=== PATIENT | female | born 2000 | race Caucasian/White ===

== ENCOUNTER 2023-03-02 12:31 | Emergency (ER) | payer MEDICAID ==
[~2023-03-02] VITALS: Ht 165.1 cm; Wt 74.1 kg
[2023-03-02] MEDS ORDERED: ondansetron 4mg rapidly disintigrating tab PO STA (12:37)
[2023-03-02] MEDS ORDERED: mag hydrox/Alum hydrox/simeth 30ml oral suspension PO ONE (12:40)
[2023-03-02] MEDS ORDERED: sucralfate 1 gm tablet PO ONE (12:40)
[2023-03-02] MEDS ORDERED: LIDOcaine Viscous 15ml cup MM ONE ×2 (12:40→12:50)
[2023-03-02] MEDS ORDERED: PANT-47 PO (16:35)
[2023-03-02 16:56] VITALS: BP 113/79; PULSE 82; RESP 18; TEMP 98.3; O2SAT 99
== END 2023-03-02 16:57 | disposition home or self-care (01) ==
LOC: ER 12:32
DX: K29.00 Acute gastritis without bleeding (principal); J45.909 Unspecified asthma, uncomplicated; Z79.899 Other long term (current) drug therapy
CPT/HCPCS: 93005; 99284

== ENCOUNTER 2024-07-03 00:46 | Emergency (ER) | payer MEDICAID ==
[~2024-07-03] VITALS: Ht 165.1 cm; Wt 79.1 kg
[~2024-07-03 00:46] MED LIST: PANT-47 PO
[2024-07-03] MEDS ORDERED: TEST200V33 SQ (01:02)
[2024-07-03 02:12] LABS: BASOPHILS # (AUTO) 0.1 X10'3 (0-0.2); BASOPHILS % (AUTO) 0.5 % (0-1); EOSINOPHILS # (AUTO) 0.1 X10'3 (0-0.9); EOSINOPHILS % (AUTO) 1.2 % (0-6); HEMATOCRIT 39.1 % (35.0-45.0); HEMOGLOBIN 13.1 g/dl (12.0-16.0); LYMPHOCYTES # (AUTO) 4.3 X10'3 (1.1-4.8); LYMPHOCYTES % (AUTO) 39.7 % (21-51); MEAN CORPUSCULAR HEMOGLOBIN 29.2 PG (27.0-31.0); MEAN CORPUSCULAR HGB CONC 33.4 g/dL (33.0-36.5); MEAN CORPUSCULAR VOLUME 87.4 FL (78-98); MEAN PLATELET VOLUME 9.6 FL (7.4-10.4); MONOCYTES # (AUTO) 0.9 X10'3 (0-0.9); MONOCYTES % (AUTO) 8.7 % (2-12); NEUTROPHILS # (AUTO) 5.4 X10'3 (1.8-7.7); NEUTROPHILS % (AUTO) 49.9 % (42-75); PLATELET COUNT 289 X10'3 (140-440); RED BLOOD COUNT 4.47 X10'6 (4.20-5.60); RED CELL DISTRIBUTION WIDTH 13.3 % (11.5-14.5); WHITE BLOOD COUNT 10.8 X10'3 (4.5-11.0)
[2024-07-03 02:16] LABS: ALANINE AMINOTRANSFERASE 15 U/L (12-78); ALBUMIN/GLOBULIN RATIO 1.2 (1.1-1.5); ALKALINE PHOSPHATASE 80 IU/L (46-116); ANION GAP 5 (8-16); ASPARTATE AMINO TRANSFERASE 12 U/L (10-37); BILIRUBIN,TOTAL 0.2 MG/DL (0.1-1.0); BLOOD UREA NITROGEN 11 MG/DL (7-18); CALCIUM 8.9 MG/DL (8.5-10.1); CHLORIDE 106 MMOL/L (99-107); CREATININE 0.92 MG/DL (0.40-0.90); GLUCOSE 101 MG/DL (70-104); LIPASE 27 U/L (16-77); POTASSIUM 4.2 MMOL/L (3.5-5.1); SODIUM 139 MMOL/L (135-145); TOTAL CARBON DIOXIDE 28.4 MMOL/L (24-32); TOTAL PROTEIN 7.3 G/DL (6.4-8.2); eCRCL 86 ML/MIN; eGFR 76 ML/MIN
[2024-07-03 05:31] VITALS: TEMP 98
--- NOTE | 2024-07-03 06:20 | Physician Documentation ---
History of Present Illness Chief Complaint: Abdominal Pain Stated Complaint: ABDOMINAL PAIN Time Seen by MD: 06:06 Primary Medical Doctor: NONE Mode of Arrival: POV HPI 23-year-old female presenting with right lower quadrant abdominal pain that started three days ago. Patient states the pain has been constant but fluctuates in intensity. At its worst it was a 10/10 but is currently a six. She states that it radiates outwards towards her belly button and also up into the upper part of her stomach and towards her back. Pain does not seem to improve or worsen with any particular activity. She also endorses nausea but no vomiting. She endorses constipation but no diarrhea. Denies any fever, chills, cough, shortness of breath or any other associated symptoms. Medication Reconciliation Allergies: Coded Allergies: latex (Unverified Allergy, Unknown, delayed contact dermatitis, 07/03/24) Scheduled Pantoprazole Sodium (PROTONIX tablet), 1 TAB PO DAILY Testosterone Cypionate (TESTOSTERONE CYPIONATE 200mg/ml 10ml vial), 0.25 ML SQ Q7D, (Reported) Past Medical History Past Medical History: Asthma Past Surgical History: other Alcohol Use: Rarely Drug Use: none Lives In: Home Review of Systems All Other Systems at this time: Reviewed and Negative Physical Exam Vital Signs: Temperature: 98.0, Source: Oral, Heart Rate: 77, Respiratory Rate: 12, BP: 117/70, Pulse Oximetry: 99, Weight: 79.100 Oxygen Flow Rate: 0 Physical Exam I have reviewed the triage vitals. CONST: Well developed and well nourished. In no acute distress HENT: Head Atraumatic EYES: Pupils are equal, round and reactive to light. Normal conjunctiva NECK: Normal range of motion. Supple. CARDIO: Normal rate and regular rhythm. No murmurs, rubs, or gallops. S1, S2. PULM/CHEST: No respiratory distress. Lungs clear to auscultation. No wheeze ABD: Soft. Nondistended. Bowel sounds normal. No guarding. Tenderness to palpation over the right lower quadrant. : Exam deferred MSK: No edema. No deformity. NEURO: Alert and oriented to person, place and time. Moving all extremities SKIN: Warm and dry. PSYCH: Normal mood and affect. Good eye contact. Progress Results/Orders Results/Orders Orders - MONIKA LECHUGA MD Normal Saline 1,000ml Iv Bolus (07/03/24 06:15) Ct Abdomen Pelvis (07/03/24 06:14) Procalcitonin (07/03/24 06:14) Culture Blood (07/03/24 06:14) Lacticsepsis (07/03/24 06:14) Vital Signs 07/03/24 07/03/24 07/03/24 07/03/24 00:53 03:08 05:31 05:31 Temp 98.3 98.0 98.0 Pulse 95 75 77 Resp 16 14 12 12 B/P (MAP) 115/77 114/57 (76) 117/70 (86) Pulse Ox 97 98 99 O2 Flow Rate 0 0 0 Laboratory Tests Test 07/03/24 01:54 White Blood Count 10.8 Red Blood Count 4.47 Hemoglobin 13.1 Hematocrit 39.1 Mean Corpuscular Volume 87.4 Mean Corpuscular Hemoglobin 29.2 Mean Corpuscular Hemoglobin Concent 33.4 Red Cell Distribution Width 13.3 Platelet Count 289 Mean Platelet Volume 9.6 Neutrophils (%) (Auto) 49.9 Lymphocytes (%) (Auto) 39.7 Monocytes (%) (Auto) 8.7 Eosinophils (%) (Auto) 1.2 Basophils (%) (Auto) 0.5 Neutrophils # (Auto) 5.4 Lymphocytes # (Auto) 4.3 Monocytes # (Auto) 0.9 Eosinophils # (Auto) 0.1 Basophils # (Auto) 0.1 CBC Comment Sodium Level 139 Potassium Level 4.2 Chloride Level 106 Carbon Dioxide Level 28.4 Anion Gap 5 L Blood Urea Nitrogen 11 Creatinine 0.92 H Estimated GFR/1.73 m2 76 BUN/Creatinine Ratio 12.0 Glucose Level 101 Calcium Level 8.9 Total Bilirubin 0.2 Aspartate Amino Transf (AST/SGOT) 12 Alanine Aminotransferase (ALT/SGPT) 15 Alkaline Phosphatase 80 Total Protein 7.3 Albumin 4.0 Globulin 3.3 Albumin/Globulin Ratio 1.2 Lipase 27 Chemistry Comments EKG/XRAY/CT/US/VASC/MRI CT : Impression Exam: CT CT ABDOMEN PELVIS W/ IV CONTRAST History: RLQ pain- r/o appy Comparison Study: None Contrast: Type of contrast: Omnipaque 300 Contrast injected: 100 ML Contrast wasted: 0 TECHNIQUE: CT of the abdomen pelvis was performed with intravenous contrast. Coronal and sagittal reformatted images are submitted. Radiation Dose Information: CT Dose: CTDI volume is 21 mGy. Dose-length product is 1025.8 mGy*cm FINDINGS: Lung Bases: No acute or significant lung base finding. Normal heart size. No pleural or pericardial effusion. Liver: The liver is normal in size. No focal lesions. Normal hepatic vascular enhancement. Gallbladder and Biliary Tree: Unremarkable Spleen: Unremarkable Pancreas: The pancreas is normal in appearance without focal lesions or abnormal enhancement. Adrenal Glands: Unremarkable Kidneys: Kidneys demonstrate normal symmetric enhancement without focal lesions, calculi or hydronephrosis. Bladder: Unremarkable Bowel: The stomach is grossly normal in appearance. Small bowel and colon are normal in caliber and distribution. The appendix is visualized and is normal. Peritoneum: No pneumoperitoneum. No ascites. Lymphadenopathy: No mesenteric, retroperitoneal or periportal lymphadenopathy. Abdominal Wall and Mesentery: Unremarkable. Vasculature: The visualized abdominal aorta is normal in size and caliber. Abdominal and pelvic vessels demonstrate normal enhancement. Pelvic Organs: Unremarkable Musculoskeletal: No aggressive focal bony lesions, acute fractures or dislocation. Soft tissues: Soft tissue nodules are noted in the bilateral chest wall, for example measuring up to 9 mm in the left base of chest (series 2, image 3). IMPRESSION: 1. No acute abnormality in the abdomen or pelvis. No acute appendicitis. 2. Indeterminate soft tissue nodules in the anterior chest wall. Correlation with any prior cTs of the chest or abdomen pelvis recommended for further evaluation. If patient has risk factors for malignancy, PET-CT is suggested for further evaluation. Medical Decision Making Additional Comments 23-year-old female presenting with what appears to be a urinary tract infection. Her urinalysis is suggestive of this given the positive nitrites and this is also consistent with the patient's clinical history. Patient's vitals are normal. We did do a CT of the abdomen and pelvis which was negative for any signs of appendicitis. Patient was medicated with 1 g of IV ceftriaxone and as well as 1 L of IV normal saline. At this point in time she is stable and safe for discharge home. I will discharge her with a prescription for Keflex and advised her to take the medication as prescribed. Follow up closely with primary care physician in the next 2-3 days. Return to the ED with any acutely worsening symptoms. Departure Disposition: 01 HOME / SELF CARE / HOMELESS Impression: Primary Impression: Acute urinary tract infection Discharge Instructions: Urinary Tract Infection, Adult Additional Instructions: Take medication as prescribed. Drink plenty of fluids. Monitor symptoms for improvement and resolution. Follow up with primary care physician in the next 2-5 days as needed. Return to the ED with any acutely worsening symptoms. Referrals: NO PRIMARY CARE PROVIDER (PCP) Prescriptions Ibuprofen (Ibuprofen) 600 Mg Tablet 1 TAB PO Q8H for pain for 10 Days, #30 TAB 0 Refills with food Prov: MONIKA LECHUGA MD 07/03/24 ONDANSETRON ODT 4mg tablet (ONDANSETRON ODT) 4 Mg Tab.rapdis 1 TAB PO Q6H PRN PRN for nausea/vomiting for 4 Days, #16 TAB 0 Refills Prov: MONIKA LECHUGA MD 07/03/24 Cephalexin Monohydrate (Cephalexin) 500 Mg Capsule 1 CAP PO Q12H for 7 Days, #14 CAP Prov: MONIKA LECHUGA MD 07/03/24 Signature Scribe Signature: 1 Attestation: 1 MONIKA LECHUGA MD July 03, 2024 06:20
[2024-07-03] MEDS: normal saline 1000ml 1,000 ML IV ONE (06:55)
[2024-07-03 06:57] VITALS: RESP 16
[2024-07-03 07:19] LABS: URINE HCG NEGATIVE (NEG)
[2024-07-03 07:22] LABS: BILIRUBIN,URINE NEGATIVE (Neg); CLARITY,URINE SLIGHTLY CLOUDY (Clear); COLOR,URINE YELLOW (Yellow); GLUCOSE, URINE NEGATIVE (Neg); KETONES,URINE NEGATIVE (Neg); LEUKOCYTE ESTERASE ,URINE NEGATIVE (Neg); NITRITES, URINE POSITIVE (Neg); OCCULT BLOOD,URINE SMALL (Neg); PROTEIN,URINE NEGATIVE (Neg); UROBILINOGEN,URINE 0.2 E.U/dL (0.2-1.0)
[2024-07-03] MEDS ORDERED: iohexol 300mg/ml 100ml inj. ONE (07:25)
[2024-07-03 07:39] LABS: UA COLLECTION TYPE CLN CATCH MIDSTREAM
[2024-07-03 07:40] LABS: BACTERIA,URINE 3+ /HPF (Neg); MUCUS STRANDS NONE SEEN /LPF (Neg); RBC,URINE NONE SEEN /HPF (0-2); SQUAMOUS EPITHELIAL CELL,UR FEW /LPF (FEW); WBC,URINE 0-4 /HPF (0-4)
--- NOTE | 2024-07-03 08:12 | RADIOLOGY REPORT ---
Exam: CT CT ABDOMEN PELVIS W/ IV CONTRAST History: RLQ pain- r/o appy Comparison Study: None Contrast: Type of contrast: Omnipaque 300 Contrast injected: 100 ML Contrast wasted: 0 TECHNIQUE: CT of the abdomen pelvis was performed with intravenous contrast. Coronal and sagittal re formatted images are submitted. Radiation Dose Information: CT Dose: CTDI volume is 21 mGy. Dose-length product is 1025.8 mGy*cm FINDINGS: Lung Bases: No acute or significant lung base finding. Normal heart size. No pleural or pericardial effusion. Liver: The liver is normal in size. No focal lesions. Normal hepatic vascular enhancement. Gallbladder and Biliary Tree: Unremarkable Spleen: Unremarkable Pancreas: The pancreas is normal in appearance without focal lesions or abnormal enhancement. Adrenal Glands: Unremarkable Kidneys: Kidneys demonstrate normal symmetric enhancement without focal lesions, calculi or hydroneph rosis. Bladder: Unremarkable Bowel: The stomach is grossly normal in appearance. Small bowel and colon are normal in caliber and d istribution. The appendix is visualized and is normal. Peritoneum: No pneumoperitoneum. No ascites. Lymphadenopathy: No mesenteric, retroperitoneal or periportal lymphadenopathy. Abdominal Wall and Mesentery: Unremarkable. Vasculature: The visualized abdominal aorta is normal in size and caliber. Abdominal and pelvic vess els demonstrate normal enhancement. Pelvic Organs: Unremarkable Musculoskeletal: No aggressive focal bony lesions, acute fractures or dislocation. Soft tissues: Soft tissue nodules are noted in the bilateral chest wall, for example measuring up to 9 mm in the left base of chest (series 2, image 3). IMPRESSION: 1. No acute abnormality in the abdomen or pelvis. No acute appendicitis. 2. Indeterminate soft tissue nodules in the anterior chest wall. Correlation with any prior cTs of th e chest or abdomen pelvis recommended for further evaluation. If patient has risk factors for maligna ncy, PET-CT is suggested for further evaluation. All CT scans at this medical facility are performed using dose modulation techniques as appropriate t o a performed exam including the following: Automated exposure control was utilized; adjustment of th e MA and/or KV according to patient size; and use of iterative reconstruction technique.
[2024-07-03] MEDS: CefTRIAXone/D5W-Rocephin 1gm 50 ML IV ONE (08:39)
[2024-07-03] MEDS ORDERED: IBUP-1985 PO (08:43)
[2024-07-03] MEDS ORDERED: CEPH500C3 PO (08:43)
[2024-07-03] MEDS ORDERED: ONDA-243 PO (08:43)
[2024-07-03 09:22] VITALS: BP 121/73; PULSE 78; O2SAT 98
[2024-07-03 09:38] LABS: APTT 29 SECONDS (22-32); INR 1.1 INR; PROTHROMBIN TIME 11.2 SECONDS (9.0-12.0)
== END 2024-07-03 09:29 | disposition home or self-care (01) ==
LOC: ER 00:47
DX: N39.0 Urinary tract infection, site not specified (principal); K59.00 Constipation, unspecified; J45.909 Unspecified asthma, uncomplicated; Z91.040 Latex allergy status; Z79.899 Other long term (current) drug therapy
CPT/HCPCS: 36415; 74177; 80053; 81001; 81025; 83605; 83690; 84145; 85025; 85610; 85730; 87040; 87077; 87088; 87186; 96361; 96365; 99285; J0696; J7030; Q9967

== ENCOUNTER 2024-07-30 12:48 | Emergency (ER) | payer MEDICAID ==
[~2024-07-30] VITALS: Ht 167.6 cm; Wt 79.0 kg
[~2024-07-30 12:48] MED LIST changes: +IBUP-1985 PO; +ONDA-243 PO; +TEST200V33 SQ
[2024-07-30 13:14] VITALS: BP 99/54; PULSE 83; RESP 16; TEMP 98.3; O2SAT 97
[2024-07-30 13:57] LABS: BILIRUBIN,URINE NEGATIVE (Neg); CLARITY,URINE CLEAR (Clear); COLOR,URINE YELLOW (Yellow); GLUCOSE, URINE NEGATIVE (Neg); KETONES,URINE NEGATIVE (Neg); LEUKOCYTE ESTERASE ,URINE NEGATIVE (Neg); NITRITES, URINE NEGATIVE (Neg); OCCULT BLOOD,URINE TRACE-INTACT (Neg); PROTEIN,URINE NEGATIVE (Neg)
[2024-07-30 14:07] LABS: UA COLLECTION TYPE CLN CATCH MIDSTREAM
[2024-07-30 14:08] LABS: BACTERIA,URINE FEW /HPF (Neg); MUCUS STRANDS FEW /LPF (Neg); RBC,URINE 0-2 /HPF (0-2); SQUAMOUS EPITHELIAL CELL,UR FEW /LPF (FEW); WBC,URINE NONE SEEN /HPF (0-4)
--- NOTE | 2024-07-30 14:54 | Physician Documentation ---
History of Present Illness Chief Complaint: Urinary Symptoms Stated Complaint: UTI Time Seen by MD: 13:45 Primary Medical Doctor: NONE Source: patient Mode of Arrival: POV Exam Limitations: no limitations HPI 23-year-old female with chief complaint right side pain which she states is a similar pain when she was diagnosed with a UTI here a few weeks ago. She denies any pain with urination, urinary frequency or urgency. She denies odor in urine or blood in urine. Patient denies fever, chills, flank pain. She states her pain is aggravated with certain movements especially with any jarring movement. Medication Reconciliation Allergies: Coded Allergies: latex (Unverified Allergy, Unknown, delayed contact dermatitis, 07/03/24) Scheduled Ibuprofen (Ibuprofen), 1 TAB PO Q8H Pantoprazole Sodium (PROTONIX tablet), 1 TAB PO DAILY Testosterone Cypionate (TESTOSTERONE CYPIONATE 200mg/ml 10ml vial), 0.25 ML SQ Q7D, (Reported) Scheduled PRN ONDANSETRON ODT 4mg tablet (Ondansetron Odt), 1 TAB PO Q6H PRN PRN for nausea/vomiting Past Medical History Past Medical History: Asthma Past Surgical History: other Alcohol Use: Rarely Drug Use: none Lives In: Home Review of Systems All Other Systems at this time: Reviewed and Negative Physical Exam Vital Signs: Temperature: 98.3, Source: Oral, Heart Rate: 83, Respiratory Rate: 16, BP: 99/54, Pulse Oximetry: 97, Weight: 78.950 Physical Exam General Appearance: Alert, WD/WN. NAD. HEENT: NCAT, PERRL, EOMI. Neck: Supple, trachea midline. Cardiovascular: RRR. No m/r/g. Lungs: CTAB. Breathing unlabored ABD: SOFT, NONDISTENDED, TENDERNESS OVER THE RIGHT PSOAS MUSCLE AREA LATERAL AND DISTAL TO PSOAS MUSCLE. NO GUARDING OR REBOUND. NO CVA TENDERNESS. Extremities: Normal inspection. No edema. Skin: Warm/dry, normal color Neurological: Alert and oriented x4, normal gait. Psychiatric: Affect congruent with mood. Progress Results/Orders Results/Orders Completed Orders - [facility] LUNDY Ua W/Microscopic, Cult If Ind (07/30/24 13:25) Vital Signs 07/30/24 13:14 Temp 98.3 Pulse 83 Resp 16 B/P (MAP) 99/54 Pulse Ox 97 Laboratory Tests Test 07/30/24 13:25 Urine Specimen Description Cln catch midstream Urine Color Yellow Urine Clarity Clear Urine pH 6.0 Urine Specific [place] 1.010 Urine Protein Negative Urine Glucose (UA) Negative Urine Ketones Negative Urine Occult Blood Trace-intact Urine Nitrite Negative Urine Bilirubin Negative Urine Urobilinogen 1.0 Urine Leukocyte Esterase Negative Urine RBC 0-2 Urine WBC None seen Urine Squamous Epithelial Cells Few Urine Bacteria Few Urine Mucus Few Urine Culture Indicated Not ind Volume Urine Centrifuged 10 ml Urine Comment Medical Decision Making Differential Dx:Considerations: Include: AAA, -Complete, -Incomplete, -Inevitable, -Missed, -Threatened, Abruptio placentae, Angina/AL, Aortic dissection, Appendicitis, Bowel obstruction, Cholangitis, Cholelithasis, Constipation, Diverticular disease, Esophageal rupture, Esophagitis, Gastritis/PUD, Gastroenteritis, GI hemorrhage, Hernia, Hepatitis, Inflammatory BD, Ischemic bowel, Ovarian cyst/torsion, Pancreatitis, PID, Porphyria, Trauma, intraabdominal, Urinary obstruction, Urinary tract infection, Urolithiasis, Other Additional Comments PATIENT'S PAIN IS WORSE WHEN SHE MOVES CERTAIN DIRECTIONS AND IS NOT RELATED TO URINATION NO URINARY FREQUENCY OR URGENCY NO PAIN AT [facility]. SUSPECT THIS IS MUSCULOSKELETAL IN ETIOLOGY ESPECIALLY GIVEN THE FACT THAT HER URINE ANALYSIS HERE WAS NEGATIVE APPENDICITIS ALSO A CONCERN; HOWEVER, SHE ALREADY HAD CT SCAN FOR THIS WHEN SHE WAS HERE FOR THIS SAME AND PREVIOUSLY NEGATIVE Departure Time of Disposition: 19:03 Disposition: 01 HOME / SELF CARE / HOMELESS Impression: Primary Impression: Right sided abdominal pain Condition: Stable Discharge Instructions: Acute Back Pain, Adult Additional Instructions: URINE TEST NEGATIVE I SUSPECT MSK ETIOLOGY GIVEN THE FACT WORSE WITH JARRING AND CERTAIN MOVEMENTS AND URINE NEGATIVE WELL NO GASTROINTESTIONAL SYMPTOMS Referrals: NO PRIMARY CARE PROVIDER (PCP) Education Educated: Patient Educated regarding: diagnosis, treatment, need for follow up Signature Scribe Signature: X Attestation: [facility] STONE Jul 30, 2024 14:54
== END 2024-07-30 15:03 | disposition home or self-care (01) ==
LOC: ER 12:48
DX: R10.9 Unspecified abdominal pain (principal); J45.909 Unspecified asthma, uncomplicated; Z91.040 Latex allergy status; Z79.899 Other long term (current) drug therapy
CPT/HCPCS: 81001; 99283

== ENCOUNTER 2024-10-09 09:55 | Emergency (ER) | payer MEDICAID ==
[~2024-10-09] VITALS: Ht 167.6 cm; Wt 77.3 kg
[~2024-10-09 09:55] MED LIST changes: -IBUP-1985 PO; +IBUP600T52 PO
--- NOTE | 2024-10-09 10:07 | ELECTROCARDIOGRAPH REPORT ---
[facility] Test Date: 2024-10-09 Test Time: 10:04:47 Pat Name: CASSIDY VALENZUELA Department: [facility] Patient ID: [facility]-[id number] Room: Gender: F Meeting Specialist: : [id number] Requested By: TED DIAZ Order Number: [id number] Reading MD: Measurements Intervals [place] Rate: 77 P: 37 AL: 110 QRS: 88 QRSD: 90 T: 71 QT: 354 QTc: 401 Interpretive Statements Sinus rhythm Borderline short AL interval Baseline wander in lead(s) V3 Please click the below link to view image of tracing.
--- NOTE | 2024-10-09 11:37 | Physician Documentation ---
History of Present Illness ~ Chief Complaint: Chest Pain Stated Complaint: CHEST PAIN Time Seen by MD: 10:38 Primary Medical Doctor: NONE Source: patient Mode of Arrival: POV Exam Limitations: no limitations HEART Score: 0 HPI 24 year old female with left sided chest wall pain which she states started about 30 minutes after she woke up this morning. She states she was still lying in bed when around 9:00 a.m. she felt a severe pain in her left chest wall. She initially thought it was a muscle spasm and she rolled over lay on her stomach but when she laid on her stomach her pain was a lot worse. She had to have her partner help her roll over and sit up and when she sat up she states the pain was a lot better. 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 She has not identified any other alleviating or aggravating factors. No abdominal pain, cough, fever, rashes, SOB. Medication Reconciliation Allergies: Coded Allergies: latex (Unverified Allergy, Unknown, delayed contact dermatitis, 10/09/24) Scheduled Ibuprofen (Ibuprofen), 1 TAB PO Q8H Pantoprazole Sodium (PROTONIX tablet), 1 TAB PO DAILY Testosterone Cypionate (TESTOSTERONE CYPIONATE 200mg/ml 10ml vial), 0.25 ML SQ Q7D, (Reported) Scheduled PRN ONDANSETRON ODT 4mg tablet (Ondansetron Odt), 1 TAB PO Q6H PRN PRN for nausea/vomiting Past Medical History Past Medical History: Asthma Past Surgical History: other Alcohol Use: Rarely Drug Use: none Lives In: Home Review of Systems All Other Systems at this time: Reviewed and Negative Physical Exam Vital Signs: Temperature: 98.0, Heart Rate: 85, Respiratory Rate: 16, BP: 123/70, Pulse Oximetry: 98, Weight: 77.270 Physical Exam GENERAL: Alert, no acute distress. HEENT: NCAT, EOMI, PERRL, normal oropharynx, moist oral mucosa. NECK: Supple, trachea midline. CARDIAC: Regular rate and rhythm, no murmurs, rubs, or gallops. PV: Equal distal pulses. No lower extremity edema, cap refill less than 2 seconds. RESPIRATORY: Equal breath sounds, clear to auscultation bilaterally, no respiratory distress. GASTROINTESTINAL: Non distended, soft, nontender, No guarding or rebound. MUSCULOSKELETAL: MILD TTP OVER LEFT CHEST WALL WITH PALPATION, Normal range of motion OF EXTREMITIES, nontender, no swelling. Normal gait. NEUROLOGICAL: Awake, alert, and oriented x 3. SKIN: Warm/dry, no pallor, no rash. PSYCH: Alert and appropriate. Affect congruent with mood. Speech is clear. Good eye contact. Progress Results/Orders Reviewed/noted all lab results: Yes Results/Orders Vital Signs 10/09/24 10/09/24 10/09/24 10/09/24 09:58 10:40 10:41 11:03 Temp 98.0 Pulse 85 85 Resp 18 15 16 B/P (MAP) 101/66 123/70 (87) Pulse Ox 99 98 98 O2 Delivery Room Air* O2 Flow Rate 0 FiO2 21 Medical Decision Making Heart Score: 0 Differential Dx:Considerations: Include: angina, aortic dissection, chest wall pain, cholelithiasis, CHF, costochondritis, esophageal reflux/spasm, gastritis, herpes zoster, myocardial infarction, pericarditis, pleuritis, pancreatitis, pneumonia, pneumothorax, pulmonary embolus, other Additional Information PULMONARY EMBOLISM CONSIDERED HOWEVER PATIENT'S SYMPTOMS ARE VERY MUCH RELATED TO HOW SHE POSITIONS HERSELF IN THIS IS NOT CONSISTENT WITH A PULMONARY EMBOLISM. PATIENT'S SYMPTOMS CAME ON SUDDENLY AFTER DOING A PERFORMANCE YESTERDAY GIVEN HER PRESENTATION, EXAM AND HISTORY I SUSPECT THIS IS MUSCULOSKELETAL. EKG NORMAL NO DIFFUSE ST CHANGES SYMPTOMS NOT CONSISTENT WITH PERICARDITIS. Departure Time of Disposition: 11:34 Disposition: 01 HOME / SELF CARE / HOMELESS Impression: Primary Impression: Chest wall pain Condition: Stable Discharge Instructions: Nonspecific Chest Pain, Adult Additional Instructions: PAIN IS CONSISTENT WITH MUSCULOSKELETAL ETIOLOGY GIVEN THE FACT THAT IT WAS WORSE WHEN YOU LAID ON YOUR STOMACH AND BETTER WITH SITTING UP. THERE IS NO HISTORY THAT SUPPORTS PERICARDITIS NO SPECIFIC RELATIONSHIP TO DEEP RESPIRATIONS. NO RELATIONSHIP TO EXERTION. LUNG EXAM NORMAL. EKG NORMAL. F/U WITH PCP WITHIN THE NEXT 2WEEKS, IF YOU DO EXPERIENCE WORSENING OF SYMPTOMS RETURN TO ER Referrals: NO PRIMARY CARE PROVIDER (PCP) Signature Scribe Signature: X Attestation: [facility] STONE Oct 09, 2024 11:37
[2024-10-09 11:57] VITALS: BP 111/65; PULSE 75; RESP 16; TEMP 98; O2SAT 97
== END 2024-10-09 11:55 | disposition home or self-care (01) ==
LOC: ER 09:56
DX: R07.89 Other chest pain (principal); J45.909 Unspecified asthma, uncomplicated; Z91.040 Latex allergy status
CPT/HCPCS: 93005; 99283

== ENCOUNTER 2024-12-10 22:51 | Emergency (ER) | payer MEDICAID ==
[~2024-12-10] VITALS: Ht 167.6 cm; Wt 75.0 kg
[2024-12-10 22:58] VITALS: BP 125/78; PULSE 80; RESP 16; TEMP 97.8; O2SAT 98
[2024-12-10] MEDS ORDERED: AMOX-117 PO (23:12)
--- NOTE | 2024-12-10 23:15 | Physician Documentation ---
History of Present Illness ~ Chief Complaint: See Chief Complaint Stated Complaint: MOUTH PAIN/BLEEDING Time Seen by MD: 23:09 OK to notify your PCP?: Yes Primary Medical Doctor: NONE Source: patient Mode of Arrival: POV Exam Limitations: no limitations HPI Presents with multiple cat scratch cortés, cat bite to right finger and cat bite inside of right upper lip. She reports that she has a new roommate with 2 new cats and her cat was upset and trying to charge at the other cats and she tried to separate them resulting in her getting bit. She reports that this is an indoor only cat. Vaccinated. Tetanus within 5 years?: Yes Medication Reconciliation Allergies: Coded Allergies: latex (Unverified Allergy, Unknown, delayed contact dermatitis, 12/10/24) Scheduled Ibuprofen (Ibuprofen), 1 TAB PO Q8H Pantoprazole Sodium (PROTONIX tablet), 1 TAB PO DAILY Testosterone Cypionate (TESTOSTERONE CYPIONATE 200mg/ml 10ml vial), 0.25 ML SQ Q7D, (Reported) Scheduled PRN ONDANSETRON ODT 4mg tablet (Ondansetron Odt), 1 TAB PO Q6H PRN PRN for nausea/vomiting Past Medical History Past Medical History: Asthma Past Surgical History: other Alcohol Use: Rarely Drug Use: none Lives In: Home Physical Exam Vital Signs: RN Vital Signs have been reviewed: Yes, Temperature: 97.8, Source: Temporal, Heart Rate: 80, Respiratory Rate: 16, BP: 125/78, Pulse Oximetry: 98, Weight: 75.000 Pulse Oximetry Reflects: adequate oxygenation Physical Exam General: Alert, no distress. HEENT: No injection, moist mucous membranes. Neck: Full range of motion. Respiratory: No respiratory distress, equal chest rise and fall. Chest: No accessory muscle use. Cardiovascular: Regular rate and rhythm. Gastrointestinal: Nondistended. Extremities: Normal range of motion, no deformity. Neurologic: Oriented x4. Psychiatric: Normal mood and affect. Skin: Multiple cat scratches to bilateral arms. Cat bite to tip of right index finger. Cat bite to right upper inner lip. Progress Results/Orders Reviewed/noted all lab results: Yes Results/Orders Orders - GUERDA MORRISSEY CASH ACCOUNTANT Amox Tr/Potassium Clavulanate (Augmentin (12/10/24 23:10) Vital Signs 12/10/24 22:58 Temp 97.8 Pulse 80 Resp 16 B/P (MAP) 125/78 Pulse Ox 98 Medical Decision Making Additional information obtaine: family Findings Cat bites and cat scratches to arms and lip. I have given Augmentin 1st dose given in the department the rest sent to the pharmacy. She is given follow up instructions as well as discharge instructions. There is no risk of rabies as this is an indoor only cat and vaccinated. Differential Dx:Considerations: Include: Abrasion, Cellulitis, Contusion, Fr acture, Hematoma, Neurovascular injury, Retained foreign body Departure Disposition: HOME / SELF CARE / HOMELESS Impression: Primary Impression: Cat bite Additional Impression: Cat scratch Condition: Stable Discharge Instructions: Cat-Scratch Disease, Adult Additional Instructions: Take all antibiotics as prescribed. Follow up with her primary care provider within the next week. Return back here for any new or worsening symptoms. Return immediately if there is any fevers, pus-like discharge from any of the wounds or increased pain or redness spreading. Can use Tylenol and/or ibuprofen for pain relief at home. Referrals: NO PRIMARY CARE PROVIDER (PCP) Prescriptions Amox Tr/Potassium Clavulanate (Augmentin 875-125 Tablet) 1 Each Tablet 1 TAB PO Q12H for 10 Days, #20 TAB Prov: GUERDA MORRISSEY 12/10/24 Education Educated: Patient Educated regarding: diagnosis, treatment, prognosis, need for follow up Additional Comment Medical Screen Exam This patient recieved a medical screening examination. After reviewing the individual's medical complaints with presenting symptoms and performing an appropriate physical examination, it was determined that no immediate life- threatening emergency medical condition is present. This individual is also not a women having contractions. Signature Scribe Signature: . Attestation: Scribed for Emergency,Department by Guerda Jensen NP . 12/10/24 23:11 Parts of this note were created using [employer] voice recognition software program. While efforts were made to correct any mistakes made by this voice recognition software program, nonsensical phrases may remain in this note. In addition, there may be errors and syntax, grammar, content and spelling. GUERDA MORRISSEY Dec 10, 2024 23:15
[2024-12-10] MEDS: amox tr/potassium clavulanate 875/125mg TAB PO ONE (23:40)
== END 2024-12-10 23:45 | disposition home or self-care (01) ==
LOC: ER 22:52
DX: S61.250A Open bite of right index finger without damage to nail, initial encounter (principal); S41.152A Open bite of left upper arm, initial encounter; S41.151A Open bite of right upper arm, initial encounter; S01.551A Open bite of lip, initial encounter; J45.909 Unspecified asthma, uncomplicated; Z91.040 Latex allergy status; W55.01XA Bitten by cat, initial encounter; Y93.89 Activity, other specified; Y92.89 Other specified places as the place of occurrence of the external cause; Y99.8 Other external cause status
CPT/HCPCS: 99283